=== PATIENT | female | born 1985 | race Two or more races ===

== ENCOUNTER 2024-04-07 20:21 | Emergency (ER) | payer OTHER ==
[~2024-04-07] VITALS: Ht 172.7 cm; Wt 103.4 kg
[2024-04-07] MEDS ORDERED: HYDROCHLORIC A500 M1 (20:39)
[2024-04-07 21:45] LABS: HEMOGLOBIN 11.8 g/dL (12.0-15.00); MEAN CELL VOLUME 85.2 fL (80.00-100.00); MEAN CORPUSCULAR HEMOGLOBIN 28.7 pg (27.00-32.0); MEAN CORPUSCULAR HGB CONC 33.7 g/dl (32.0-36.0); PLATELET COUNT 284 K/uL (150-450); RED CELL DISTRIBUTION WIDTH 13.4 % (11.5-14.5)
[2024-04-07 22:03] LABS: CALCIUM 8.8 mg/dL (8.5-10.1); CREATININE SERUM 0.83 mg/dL (0.55-1.02); GFR 76.94; POTASSIUM 3.08 mEq/L (3.5-5.1)
== END 2024-04-07 22:56 | disposition home or self-care (01) ==
LOC: ER 20:22
PROVIDERS: General Practice
DX: R07.9 Chest pain, unspecified (principal); I10 Essential (primary) hypertension; Z20.822 Contact with and (suspected) exposure to COVID-19